=== PATIENT | female | born 1975 | race Caucasian/White ===

== ENCOUNTER 2017-02-11 10:17 | Emergency (ER) | payer OTHER ==
[~2017-02-11] VITALS: Ht 154.9 cm; Wt 68.0 kg
[2017-02-11 10:39] VITALS: BP 134/78
--- NOTE | 2017-02-11 11:10 | NUR ---
Patient ambulated to bed 04.
--- NOTE | 2017-02-11 11:12 | NUR ---
41F BIB SELF C/O RT HIP/ RT FLANK PAIN X 3 DAYS; PT DENIES TRAUMA OR INJURY TO SITES; NO REDNESS OR SWELLING NOTED AT THIS TIME; PT C/O SHARP PAIN TO RT HIP, NON-RADIATING, 10/10 X 3 DAYS & ACHING PAIN TO RT FLANK, NON-RADIATING, 5/10 X 3 DAYS; DENIES N/V/D AT THIS TIME; PT A&OX4, PERRLA, BL LUNG SOUNDS CLEAR, RR EVEN/UNLABORED, SKIN IS WARM/DRY/INTACT AT THIS TIME; PT RESTING IN BED W/ HOB ELEVATED AND IN LOWEST POSITION; POSITIONED FOR COMFORT; ER MD MADE AWARE OF STATUS. WILL CONTINUE TO MONITOR .
--- NOTE | 2017-02-11 11:14 | NUR ---
Dr. Mahan evaluating patient at bedside.
[2017-02-11] MEDS ORDERED: KETOROLAC 60 MG/2 ML VIAL IM ONE (11:20)
--- NOTE | 2017-02-11 11:21 | NUR ---
PT REFUSED PAIN MEDICATION ORDERED BY ER MD DR. LARSEN; STATES " I DON'T TAKE MEDICATION FOR PAIN; I DON'T EVEN WANT ANY PILLS"; EXPLAINED RISKS/BENEFITS; ER MD DR. LARSEN NOTFIIED; WILL CONTINUE TO MONITOR.
[2017-02-11 11:41] LABS: APPEARANCE,URINE CLEAR (CLEAR); BILIRUBIN,URINE NEGATIVE (NEGATIVE); BLOOD, URINE 2+ (NEGATIVE); COLOR,URINE YELLOW (YELLOW); LEUKOCYTE ESTERASE ,URINE NEGATIVE (NEGATIVE); NITRITE, URINE NEGATIVE (NEGATIVE); PROTEIN,URINE NEGATIVE (NEGATIVE); UGLUCOSE NEGATIVE (NEGATIVE); UROBILINOGEN,URINE 0.2 EU/dL (0.2 - 1)
[2017-02-11 11:48] LABS: BACTERIA,URINE 1+ /HPF (None Seen); MUCUS,URINE 1+ /LPF (None Seen); RBC,URINE 3-10 (FEW) /HPF (0-5); WBC,URINE 0-5 (RARE) /HPF (0-5)
--- NOTE | 2017-02-11 12:19 | NUR ---
Patient going to CT via wheelchair per tech.
--- NOTE | 2017-02-11 12:26 | NUR ---
Patient back from CT via wheelchair per tech.
--- NOTE | 2017-02-11 12:35 | NUR ---
Patient appears to be resting comfortably in bed. Vital Signs within normal limits. Respirations even and unlabored. NO ACUTE DISTRESS NOTED AT THIS TIME; PT CONTINUES TO REFUSE PAIN MEDICATION; STATES PAIN TOLERABLE AND DOES NOT WANT TO TAKE ANY MEDICATION FOR PAIN AT THIS TIME; WILL CONTINUE TO MONITOR.
[2017-02-11 13:15] VITALS: BP 133/87
--- NOTE | 2017-02-11 13:15 | NUR ---
Patient discharged with v/s stable. Written and verbal after care instructions given and explained. Patient alert, oriented and verbalized understanding of instructions. Ambulatory with steady gait. All questions addressed prior to discharge. ID band removed. Patient advised to follow up with PMD. Rx of MOTRIN 600MG given. Patient educated on indication of medication including possible reaction and side effects. Opportunity to ask questions provided and answered.
== END 2017-02-11 13:15 | disposition home or self-care (01) ==
LOC: MED 10:17
DX: K80.80 Other cholelithiasis without obstruction (principal); Z88.0 Allergy status to penicillin
CPT/HCPCS: 73502; 74176; 81001; 81025; 87086; 99285; J1885

== ENCOUNTER 2019-10-21 14:47 | Emergency (ER) | payer SELFPAY ==
[~2019-10-21] VITALS: Ht 154.9 cm; Wt 73.0 kg
[2019-10-21 15:04] VITALS: BP 178/100
--- NOTE | 2019-10-21 15:10 | NUR ---
PT C/O 3 WEEK TONGUE PAIN 05/21. NO SIGNS OF TRUAMA. PT REPORTS NO GUM PAIN, TOOTH PAIN, OR ACTIVE BLEEDING. PT ALERT AND AWAKE, AMBULATORY.
[2019-10-21 15:20] VITALS: BP 178/100
--- NOTE | 2019-10-21 15:20 | NUR ---
Patient discharged with v/s stable. Written and verbal after care instructions given and explained REGARDING MEDICAL SCREENING EXAM. Patient alert, oriented and verbalized understanding of instructions. Ambulatory with steady gait. All questions addressed prior to discharge. ID band removed. Patient advised to follow up with PMD. Rx of IBUPROFEN given. Patient educated on indication of medication including possible reaction and side effects. Opportunity to ask questions provided and answered. PT INSTRUCTED TO FOLLOW UP WITH [facility].
== END 2019-10-21 15:20 | disposition home or self-care (01) ==
LOC: MED 14:47
DX: K14.6 Glossodynia (principal); I10 Essential (primary) hypertension; Z88.0 Allergy status to penicillin
CPT/HCPCS: 99282

== ENCOUNTER 2019-11-04 15:51 | Emergency (ER) | payer SELFPAY ==
[~2019-11-04] VITALS: Ht 153.7 cm; Wt 71.7 kg
[2019-11-04 15:58] VITALS: BP 134/95
--- NOTE | 2019-11-04 16:39 | NUR ---
PT AMBULATED TO ER BED 3
--- NOTE | 2019-11-04 16:49 | NUR ---
PT C/O WEAKNESS, SOB, & PALPITATIONS, MILD UPEER ABDOMINLA PAIN RADIATING TO LOWER BACK X TODAY BUT SYMPTOMS IMPROVING. PT HAS NAUSEA AT THIS TIME. PATIENT STATES PAIN OF 0/10 AT THIS TIME; VSS; PATIENT POSITIONED FOR COMFORT; HOB ELEVATED; BEDRAILS UP X1; BED DOWN. ER MD MADE AWARE OF PT STATUS.
--- NOTE | 2019-11-04 17:12 | NUR ---
PT STATES FEELING BETTER NOW. RESTING IN THE BED W/ VSS.
--- NOTE | 2019-11-04 18:01 | NUR ---
PT IS RESTING IN THE BED AND STATES FEELING MUCH BETTER AT THIS TIME.
--- NOTE | 2019-11-04 18:41 | NUR ---
DR. MOODY IS EVALUATING PT AT BEDSIDE.
[2019-11-04 19:14] VITALS: BP 135/87
== END 2019-11-04 19:14 | disposition home or self-care (01) ==
LOC: MED 15:51
DX: R06.02 Shortness of breath (principal); F41.9 Anxiety disorder, unspecified; Z88.0 Allergy status to penicillin
CPT/HCPCS: 71045; 99283

== ENCOUNTER 2023-12-19 13:34 | Emergency (ER) | payer OTHER ==
[~2023-12-19] VITALS: Ht 154.9 cm; Wt 73.9 kg
[2023-12-19 13:37] VITALS: BP 111/98; PULSE 87; RESP 19; TEMP 99; O2SAT 96
[2023-12-19] MEDS ORDERED: KETOROLAC 60 MG/2 ML VIAL IM ONE (14:25)
[2023-12-19] MEDS ORDERED: IBUP-2213 PO (14:30)
== END 2023-12-19 14:45 | disposition home or self-care (01) ==
LOC: MED 13:34
DX: M79.601 Pain in right arm (principal); Z79.899 Other long term (current) drug therapy
CPT/HCPCS: 99282